=== PATIENT | male | born 1985 | race African-American/Black ===

== ENCOUNTER 2022-06-03 00:24 | Emergency (ER) | payer OTHER, SELFPAY ==
--- NOTE | ~2022-06-03 | CT_ITS ---
EXAMINATION: CT abdomen pelvis w con DATE: 06/03/2022 01:50 INDICATION: Mid lower abdominal pain with intermittent rectal prolapse TECHNIQUE: Computed tomography (CT) of the abdomen and pelvis was performed with 100 cc Omnipaque 350 intravenous contrast. The dose-length product was 633.35 mGy-cm. Automated exposure control and iter ative reconstruction technique were employed. COMPARISON: None. FINDINGS: There is dependent atelectasis. Elevated right diaphragm which may be due to eventration of the diaphragm or diaphragmatic paralysis. Heart size normal. No significant pleural or pericardial e ffusion. No significant vascular abnormality. No lymphadenopathy. The liver, spleen, pancreas, adrenal glands and kidneys are unremarkable. Nonobstructive bowel gas pa ttern. There is no diastases of the rectus muscles with hernia containing segment of transverse colon which is not obstructed. There is mild rectal wall thickening, suspicious for proctitis. There is extensive surgical repair of the right pelvis with overlying myositis ossificans extending i nto the gluteal region posteriorly. IMPRESSION: 1. Abnormal thickening of the rectum, suspicious for proctitis. 2: Diastases of the rectus muscles containing nonobstructed transverse colon. Reviewed, dictated and finalized at location B.
[2022-06-03 00:28] VITALS: BP 111/86; PULSE 88; RESP 18; TEMP 37.1; O2SAT 100
[2022-06-03 00:49] LABS: Basophils Percent Auto 0.4 % (0.2-1.2); Eosinophils Absolute Auto 0.3 K/mm3 (0-0.3); Eosinophils Percent Auto 4.1 % (0-4.4); Hematocrit 43.4 % (42.0-52.0); Immature Granulocyte Absolute 0.02 K/mm3 (0.00-0.031); Immature Granulocyte Percent A 0.2 % (0-0.5); Lymphocytes Absolute Auto 3.06 K/mm3 (0.9-3.2); Lymphocytes Percent Auto 36.6 % (18.3-44.2); Mean Corpuscular HGB Conc 32.3 g/dl (32-36); Mean Corpuscular Hemoglobin 28.8 pg (26-34); Mean Corpuscular Volume 89.3 fl (80-100); Monocytes Absolute Auto 0.5 K/mm3 (0.1-0.6); Neutrophils Absolute Auto 4.4 K/mm3 (1.3-6.7); Neutrophils Percent Auto 52.7 % (45.5-73.1); Platelet Count Result 234 k/mm3 (150-375); Red Blood Count 4.86 M/mm3 (4.6-6.20); Red Cell Distribution Width 15.4 % (11.5-14.5); White Blood Count 8.4 K/mm3 (4.5-10.0)
[2022-06-03 01:08] LABS: Alanine Aminotransferase 19 U/L (6-50); Albumin Level 4.3 g/dL (3.5-5.1); Alkaline Phosphatase 98 U/L (38-126); Anion Gap 14 mmol/L (8-16); Aspartate Amino Transferase 26 U/L (17-59); Bilirubin,Total 0.8 mg/dL (0.2-1.3); Blood Urea Nitrogen 14 mg/dL (9-20); Carbon Dioxide 21 mmol/L (22-30); Chloride 104 mmol/L (98-107); Estimated CRCL calculation 153 ml/min; Estimated Glomerular Filt Rate > 60; Glucose 90 mg/dL (65-110); Lipase 65 U/L (23-300); Potassium 4.1 mmol/L (3.4-5.0); Sodium 139 mmol/L (137-145)
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
[2022-06-03] MEDS: GABAPENTIN 300 MG CAPSULE 600 MG PO (04:15)
[2022-06-03 04:55] VITALS: BP 112/80; PULSE 90; RESP 19; O2SAT 100
== END 2022-06-03 04:56 | disposition home or self-care (01) ==
PROVIDERS: Emergency Provider Emergency Medicine
DX: K62.89 Other specified diseases of anus and rectum (principal); K62.3 Rectal prolapse
CPT/HCPCS: 36415; 74177; 80053; 83690; 85025; 99284; A9270; Q9967